=== PATIENT | female | born 2005 | race Caucasian/White ===

== ENCOUNTER 2024-04-08 17:22 | Emergency (ER) | payer OTHER, SELFPAY ==
[2024-04-08 17:35] VITALS: BP 141/91
--- NOTE | 2024-04-08 17:45 | ED.PDOC.TRB ---
ED Provider Triage
-
A medical screening examination has been initiated by a qualified medical provider. Based on the assessment performed at this time, it has been determined that an emergent medical condition may exist and the patient has been informed that further
medical evaluation and possible additional diagnostic testing may be needed.
HPI: This is a medical evaluation conducted in person to initiate diagnostic evaluation and provide initial therapeutics. Please see further documentation by the treating clinician.
GENERAL: Alert ,tearful
EYE: No visual abnormalities.
NECK: Trachea midline
ENT: No visible abnormalities.
LUNGS: No acute respiratory distress
NEUROLOGICAL: Alert and oriented
SKIN: papular erythematous rash diffuse
rosacea
MUSCULOSKELETAL: Moving extremities normally
PSYCH: Normal and appropriate interaction.
18 y/o F
h/o eczema/rosacea
here with diffuse papular rash flared up 2 weeks ago since being back here in college at [employer] [facility]
from [place]
has had this before a few times, and has had oral steroid taper which did help
but it has returned
she cannot think of any topical things that are causing it like detergents
no concern for STI
no fever
not painful
quite itching
possibly eczema/atopic dermatitis, stress induced?
doesn't look infectious
probably would benefit from f/u with rheum and/ora llergist
will defer treatmetn
--- NOTE | 2024-04-08 19:32 | ED.GENMED ---
History of Present Illness
General
Chief Complaint: Skin Problem
Source: patient
Time Seen by Provider: 04/08/24 19:19
History of Present Illness
History of Present Illness:
18-year-old female presents emergency department with a pruritic rash involving face extremities upper chest etc. for at least the last 2 weeks. She has had a similar rash in the past relieved with steroids. She has seen dermatology in the past
and has a history of psoriasis. She denies lip or tongue swelling, trouble swallowing, trouble breathing, shortness of breath, chest pain, abdominal pain, nausea, vomiting, or other complaints. She denies new exposures.
Past History
Past History
ED Past Medical History: None
ED Past Surgical History: None
Social History
Tobacco: Non-smoker
Alcohol: Occasional
Drug: None
Personal: Single
Living: with roommate
Employment: Student
Phy Exam
Physical Exam
Physical Exam:
GENERAL: Alert , in no apparent distress
EYE: pupils equal and reactive
NECK: Supple, no significant adenopathy.
ENT: o/p clr, mmm, no trismus, no stridor, no drool.
CARDIAC: Regular rate and rhythm .
LUNGS: Clear breath sounds bilaterally, no acute respiratory distress, no wheezes/rales/rhonchi
ABDOMEN: Soft, without focal tenderness, no r/g, no cvat
NEUROLOGICAL: Alert and oriented, no focal neuro deficits
SKIN: Warm and dry, skin intact. There is a diffuse papular rash noted all 4 extremities, face, upper chest without associated purpura, blistering, open wounds, or other abnormalities
MUSCULOSKELETAL: No edema, well perfused.
PSYCH: Normal and appropriate interaction.
Course
Orders/Labs/Results
Orders:
Orders
04/08/24 19:31
Prednisone [Deltasone] 50 mg PO NOW STA
Vital Signs
Initial and Last Documented VS:
Initial Vital Signs
Temp Pulse Resp BP Pulse Ox
98.3 F 96 16 141/91 98
04/08/24 17:35 04/08/24 17:35 04/08/24 17:35 04/08/24 17:35 04/08/24 17:35
Last Documented Vital Signs
Temp Pulse Resp BP Pulse Ox
98.3 F 96 16 141/91 98
04/08/24 17:35 04/08/24 17:35 04/08/24 17:35 04/08/24 17:35 04/08/24 17:35
*Critical Care Note
Total Time (30-74mins, 75-104mins- exclusive of procedures): Not Applicable
Update Note
Update Note:
Patient presents to the Emergency Department with ____pruritic rash
Number and Complexity of Problems Addressed at the Encounter
� Chronic conditions affecting care:
� Acute Exacerbation and/or Progression of Chronic Illness:
� Differential Diagnosis includes: But not limited to allergic reaction, viral related exanthem, medication reaction, etc.
Amount and/or Complexity of Data to be Reviewed and Analyzed
� I performed an independent evaluation of and my interpretation is:
EKG:
CT:
Xrays:
Laboratory Studies:
Other:
� Review of other/old records reveals:
� Clinical information was obtained by an independent historian:
� Prescriptions/Medications Considered but not given:
� Further testing considered but not performed:
Risk of Complications and/or Morbidity or Mortality of Patient Management
� Social determinants of health affecting care:
� Discussion with other providers (PCP, Hospitalists, Consultants, etc):
� Escalation of care including admission/observation vs risk of discharge considered: No airway involvement, no signs to suggest Bender-David syndrome mucosal involvement, etc. Discussed with patient importance of Derm
follow-up and reasons to return to the ER. Will prescribe a steroid taper.
ED Attending Note
-
Portions of this chart may have been created with voice recognition software.� Occasional wrong word or��sound alike� substitutions may have occurred due to the inherent limitations of voice recognition software.
Discharge Plan
Departure
Patient Disposition: Home (Routine Discharge)
Date of Disposition: 04/08/24
Time of Disposition: 19:34
Patient with high blood pressure during this ER visit?: Yes
Condition: Good
Discharge Problem:
Rash
Instructions: Skin Rash (DC), BLOOD PRESSURE
Prescriptions:
New
prednisone 10 mg tablet
10 mg PO DIRECTED Qty: 50 0RF
Rx Instructions:
50MG QDx4D, THEN [id number], THEN 30MG QDx3D THEN 20MG QDx3D THEN 10 MG QDx3D THEN D/C
Referrals:
UNKNOWN - PT DOES,NOT KNOW [Family Provider] -
Activity Restrictions/Additional Instructions:
IF YOU DEVELOP DIZZINESS, LIP/TONGUE SWELLING, TROUBLE SWALLOWING OR BREATHING, FEVER, VOMITING, OR OTHER WORRISOME SIGNS, GO TO THE ER IMMEDIATELY!
Interventions
Interventions:
*Risk Screen - Suicide Last Done: 04/08/24 17:35
*General Assessment Last Done: 04/08/24 17:35
*Neglect/Abuse Screening Last Done: 04/08/24 17:35
ED- Fall Risk Assessment Last Done: 04/08/24 19:13
ED-Skin Assessment Last Done: 04/08/24 19:13
Discharge Date and Time
Print Language: GUAMANIAN
[2024-04-08] MEDS: DELTASONE 50 MG PO (20:04)
== END 2024-04-08 20:31 | disposition home or self-care (01) ==
LOC: EMR 17:22
PROVIDERS: EMERGENCY PHYSICIAN Emergency Medicine
DX: R21 Rash and other nonspecific skin eruption (principal); R03.0 Elevated blood-pressure reading, without diagnosis of hypertension
CPT/HCPCS: 99283